=== PATIENT | male | born 1975 | race Caucasian/White ===

== ENCOUNTER 2019-09-05 17:26 | Emergency (ER) | payer SELFPAY ==
[~2019-09-05] VITALS: Ht 185.4 cm; Wt 74.8 kg
[2019-09-05 18:23] VITALS: BP 144/94
[2019-09-05] MEDS ORDERED: MORPHINE SULFATE 4 MG/ML SYR/VIAL IV ONE (18:30)
[2019-09-05] MEDS ORDERED: ONDANSETRON HCL 4 MG/2 ML VIAL IV ONE (18:30)
== END 2019-09-05 21:48 | disposition home or self-care (01) ==
LOC: EDBD 17:26 → ER 17:33
DX: S42.022A Displaced fracture of shaft of left clavicle, initial encounter for closed fracture (principal); F17.210 Nicotine dependence, cigarettes, uncomplicated; Z88.6 Allergy status to analgesic agent; V86.55XA Driver of 3- or 4- wheeled all-terrain vehicle (ATV) injured in nontraffic accident, initial encounter; Y93.89 Activity, other specified; Y99.8 Other external cause status; Y92.89 Other specified places as the place of occurrence of the external cause
CPT/HCPCS: 73030; 96374; 96375; 99284; J2270; J2405

== ENCOUNTER 2021-04-11 23:49 | Emergency (ER) | payer SELFPAY ==
[~2021-04-11] VITALS: Ht 175.3 cm; Wt 63.5 kg
[2021-04-12 03:40] VITALS: BP 116/65
== END 2021-04-12 03:58 | disposition home or self-care (01) ==
LOC: EDBD 23:49 → ER 23:50
DX: T40.411A Poisoning by fentanyl or fentanyl analogs, accidental (unintentional), initial encounter (principal); R94.31 Abnormal electrocardiogram [ECG] [EKG]; F17.210 Nicotine dependence, cigarettes, uncomplicated; F10.10 Alcohol abuse, uncomplicated; Y90.9 Presence of alcohol in blood, level not specified; Z79.82 Long term (current) use of aspirin; Y92.89 Other specified places as the place of occurrence of the external cause
CPT/HCPCS: 93005

== ENCOUNTER 2022-09-15 17:54 | Emergency (ER) | payer SELFPAY ==
[~2022-09-15] VITALS: Ht 175.3 cm; Wt 85.0 kg
[2022-09-15] MEDS ORDERED: KETOROLAC TROMETH 60MG/2ML VIAL IM ONE (18:45)
[2022-09-16 06:05] VITALS: BP 105/66
== END 2022-09-15 23:02 | disposition left against medical advice (07) ==
LOC: EDBD 17:54 → ER 17:54
DX: T43.651A Poisoning by methamphetamines accidental (unintentional), initial encounter (principal); F17.210 Nicotine dependence, cigarettes, uncomplicated; F15.10 Other stimulant abuse, uncomplicated; Z59.00 Homelessness unspecified; Z88.6 Allergy status to analgesic agent; Y92.89 Other specified places as the place of occurrence of the external cause

== ENCOUNTER → 2022-09-16 | Emergency (ER) | payer SELFPAY ==
[~2022-09-16] VITALS: Ht 185.4 cm; Wt 68.9 kg
[~2022-09-16] MED LIST: LORazepam 2MG/ML-1ML VIAL IV ONE; SODIUM CHLORIDE 0.9% 1,000 ML IV ONE
[2022-09-16 11:15] VITALS: BP 117/68
== END | disposition home or self-care (01) ==
LOC: ER 10:49
DX: F15.23 Other stimulant dependence with withdrawal (principal); F17.210 Nicotine dependence, cigarettes, uncomplicated; Z88.6 Allergy status to analgesic agent; Z59.00 Homelessness unspecified